=== PATIENT | male | born 1980 | race Caucasian/White ===

== ENCOUNTER 2022-08-17 07:01 | Emergency (ER) | payer OTHER ==
[~2022-08-17] VITALS: Ht 185.4 cm; Wt 77.1 kg
[~2022-08-17 07:01] MED LIST: ALBIPROI INH; AMOCLA500 PO; AMOCLA875 PO; CEPH500 PO; CODACE30 PO; CYCL10 PO; Cyclobenzaprine5 MG PO; HYDACE5 PO; HYDR1TAB94 PO; IBUP600 PO; IBUP800 PO; META800 PO; MUPI2TO TOP; NAPR500 PO; Naprosyn375 MG PO; Norco 5-325 Ta1 EACH PO; PENVK500 PO; PRED10 PO; PROACE50 PO; PROM25 PO; Percocet 5-3251 EACH PO; SERT100; SERT100 PO; TRAM50 PO; TRAZ100; TRAZ100 PO
[2022-08-17 07:19] VITALS: BP 121/66
[2022-08-17] MEDS ORDERED: BUPRENORPHINE-1 EACH SL (07:21)
[2022-08-17] MEDS ORDERED: SULTRIDS PO (08:56)
== END 2022-08-17 09:05 | disposition home or self-care (01) ==
LOC: ER 07:01
DX: L02.212 Cutaneous abscess of back [any part, except buttock and flank] (principal); L03.312 Cellulitis of back [any part except buttock and flank]; F17.290 Nicotine dependence, other tobacco product, uncomplicated; Z88.5 Allergy status to narcotic agent
CPT/HCPCS: A9270

== ENCOUNTER 2024-04-12 19:52 | Emergency (ER) | payer OTHER ==
[~2024-04-12] VITALS: Ht 185.4 cm; Wt 72.6 kg
[~2024-04-12 19:52] MED LIST changes: +BUPRENORPHINE-1 EACH SL; +SULTRIDS PO
[2024-04-12 23:00] VITALS: BP 119/78
[2024-04-12] MEDS ORDERED: Magnesium Citrate 300 ML BTL PO ONE (23:00)
[2024-04-12] MEDS ORDERED: LACT10SY PO (23:05)
[2024-04-12] MEDS ORDERED: DOCU100 PO (23:05)
== END 2024-04-12 23:28 | disposition home or self-care (01) ==
LOC: ER 19:52
DX: K59.00 Constipation, unspecified (principal); F17.290 Nicotine dependence, other tobacco product, uncomplicated; Z79.899 Other long term (current) drug therapy; Z88.5 Allergy status to narcotic agent
CPT/HCPCS: 74018; 99283-25; A9270

== ENCOUNTER 2024-12-20 13:53 | Emergency (ER) | payer OTHER ==
[~2024-12-20] VITALS: Ht 185.4 cm; Wt 74.8 kg
[~2024-12-20 13:53] MED LIST changes: +DOCU100 PO; +LACT10SY PO
[2024-12-20 14:28] VITALS: BP 120/89
== END 2024-12-20 14:42 | disposition home or self-care (01) ==
LOC: ER 13:53
DX: T16.2XXA Foreign body in left ear, initial encounter (principal); F17.290 Nicotine dependence, other tobacco product, uncomplicated; Z88.5 Allergy status to narcotic agent; Z79.899 Other long term (current) drug therapy; W44.G1XA Audio device entering into or through a natural orifice, initial encounter
CPT/HCPCS: 69200; 99282-25